=== PATIENT | male | born 1990 | race African-American/Black ===

== ENCOUNTER 2021-03-07 00:01 | Emergency (ER) | payer OTHER ==
--- NOTE | 2021-03-07 00:14 | EDM.PDOC ---
ED HPI GENERAL MEDICAL PROBLEM - General Chief Complaint: Fever Stated Complaint: HIGH FEVER Time Seen by Provider: 03/07/21 00:12 Source of Information: Reports: Patient History Limitations: Reports: No Limitations - History of Present Illness INITIAL COMMENTS - FREE TEXT/NARRATIVE: Patient is a 30-year-old male sent [place] [facility] for evaluation for fever. Patient was. A fever greater than 102 was given Tylenol before arrival. Patient states that he has had a dry cough diffuse body aches. Has been tolerating p.o. no nausea vomiting chest pain abdominal pain. He states no one else at the retirement was having similar symptoms. body aches Pain Score (Numeric/FACES): 8 - Related Data Allergies Allergy/AdvReac Type Severity Reaction Status Date / Time No Known Allergies Allergy Verified 03/07/21 00:12 Home Meds: Home Meds . [No Known Home Meds] 03/07/21 [History] ED ROS GENERAL - Review of Systems Review Of Systems: See Below Constitutional: Reports: Fever, Chills, Malaise HEENT: Reports: No Symptoms Respiratory: Reports: Cough Cardiovascular: Reports: No Symptoms Endocrine: Reports: No Symptoms GI/Abdominal: Reports: No Symptoms : Reports: No Symptoms Musculoskeletal: Reports: No Symptoms Skin: Reports: No Symptoms Neurological: Reports: No Symptoms Psychiatric: Reports: No Symptoms Hematologic/Lymphatic: Reports: No Symptoms Immunologic: Reports: No Symptoms ED EXAM, GENERAL - Physical Exam Exam: See Below Exam Limited By: No Limitations General Appearance: Alert, WD/WN, No Apparent Distress Eye Exam: Bilateral Eye: EOMI, PERRL Ears: Normal External Exam Throat/Mouth: Normal Inspection Head: Atraumatic, Normocephalic Neck: Normal Inspection Respiratory/Chest: No Respiratory Distress, Lungs Clear, Normal Breath Sounds Cardiovascular: Normal Peripheral Pulses, Regular Rate, Rhythm GI/Abdominal: Normal Bowel Sounds, Soft, Non-Tender Extremities: Normal Inspection, Normal Range of Motion Neurological: Alert, Oriented, CN II-XII Intact, Normal Cognition, Normal Gait Course - Vital Signs Last Recorded V/S: Last Vital Signs Temp 101.4 F H 03/07/21 00:13 Pulse 80 03/07/21 03:50 Resp 16 03/07/21 00:13 BP 112/70 03/07/21 03:50 Pulse Ox 97 03/07/21 03:50 - Orders/Labs/Meds Orders: Active Orders 24 hr Category Date Time Status CULTURE BLOOD [BC] Stat Lab 03/07/21 00:40 Received CULTURE BLOOD [BC] Stat Lab 03/07/21 00:45 Received Blood Culture x2 Reflex Set [OM.PC] Stat Oth 03/07/21 00:13 Ordered Labs: Laboratory Tests 03/07/21 03/07/21 03/07/21 Range/Units 00:30 00:40 00:40 WBC (4.0-11.0) K/uL RBC (4.50-5.90) M/uL Hgb (13.0-17.0) g/dL Hct (38.0-50.0) % MCV (80.0-98.0) fL MCH (27.0-32.0) pg MCHC (31.0-37.0) g/dL RDW Std Deviation (28.0-62.0) fl RDW Coeff of Florencio (11.0-15.0) % Plt Count (150-400) K/uL MPV (7.40-12.00) fL Neut % (Auto) (48.0-80.0) % Lymph % (Auto) (16.0-40.0) % [place] % (Auto) (0.0-15.0) % Eos % (Auto) (0.0-7.0) % Baso % (Auto) (0.0-1.5) % Neut # (Auto) (1.4-5.7) K/uL Lymph # (Auto) (0.6-2.4) K/uL [place] # (Auto) (0.0-0.8) K/uL Eos # (Auto) (0.0-0.7) K/uL Baso # (Auto) (0.0-0.1) K/uL Nucleated RBC % /100WBC Nucleated RBCs # K/uL Sodium 136 (136-148) mmol/L Potassium 4.1 (3.5-5.1) mmol/L Chloride 100 (98-107) mmol/L Carbon Dioxide 22.6 (21.0-32.0) mmol/L BUN 12 (7.0-18.0) mg/dL Creatinine 1.2 (0.8-1.3) mg/dL Est Cr Clr Drug Dosing 92.94 mL/min Estimated GFR (MDRD) > 60.0 ml/min Glucose 108 H (74-106) mg/dL Lactic Acid 0.8 (0.4-2.0) mmol/L Calcium 8.6 (8.5-10.1) mg/dL Phosphorus 3.9 (2.6-4.7) mg/dL Magnesium 1.9 (1.8-2.4) mg/dL Total Bilirubin 0.2 (0.2-1.0) mg/dL AST 22 (15-37) IU/L ALT 31 (14-63) IU/L Alkaline Phosphatase 65 (46-116) U/L Creatine Kinase 285 (26-308) U/L Total Protein 7.7 (6.4-8.2) g/dL Albumin 4.0 (3.4-5.0) g/dL Globulin 3.7 (2.6-4.0) g/dL Albumin/Globulin Ratio 1.1 (0.9-1.6) Urine Color YELLOW Urine Appearance CLEAR Urine pH 6.0 (5.0-8.0) Ur Specific [place] 1.020 (1.001-1.035) Urine Protein NEGATIVE (NEGATIVE) mg/dL Urine Glucose (UA) NEGATIVE (NEGATIVE) mg/dL Urine Ketones 15 H (NEGATIVE) mg/dL Urine Occult Blood NEGATIVE (NEGATIVE) Urine Nitrite NEGATIVE (NEGATIVE) Urine Bilirubin NEGATIVE (NEGATIVE) Urine Urobilinogen 0.2 (<2.0) EU/dL Ur Leukocyte Esterase NEGATIVE (NEGATIVE) SARS-CoV-2 RNA (JOEL) (NEGATIVE) 03/07/21 03/07/21 Range/Units 00:45 01:28 WBC 5.18 (4.0-11.0) K/uL RBC 5.17 (4.50-5.90) M/uL Hgb 14.7 (13.0-17.0) g/dL Hct 43.0 (38.0-50.0) % MCV 83.2 (80.0-98.0) fL MCH 28.4 (27.0-32.0) pg MCHC 34.2 (31.0-37.0) g/dL RDW Std Deviation 42.5 (28.0-62.0) fl RDW Coeff of Florencio 14 (11.0-15.0) % Plt Count 230 (150-400) K/uL MPV 10.80 (7.40-12.00) fL Neut % (Auto) 57.9 (48.0-80.0) % Lymph % (Auto) 17.4 (16.0-40.0) % [place] % (Auto) 23.9 H (0.0-15.0) % Eos % (Auto) 0.0 (0.0-7.0) % Baso % (Auto) 0.8 (0.0-1.5) % Neut # (Auto) 3.0 (1.4-5.7) K/uL Lymph # (Auto) 0.9 (0.6-2.4) K/uL [place] # (Auto) 1.2 H (0.0-0.8) K/uL Eos # (Auto) 0.0 (0.0-0.7) K/uL Baso # (Auto) 0.0 (0.0-0.1) K/uL Nucleated RBC % 0.0 /100WBC Nucleated RBCs # 0 K/uL Sodium (136-148) mmol/L Potassium (3.5-5.1) mmol/L Chloride (98-107) mmol/L Carbon Dioxide (21.0-32.0) mmol/L BUN (7.0-18.0) mg/dL Creatinine (0.8-1.3) mg/dL Est Cr Clr Drug Dosing mL/min Estimated GFR (MDRD) ml/min Glucose (74-106) mg/dL Lactic Acid (0.4-2.0) mmol/L Calcium (8.5-10.1) mg/dL Phosphorus (2.6-4.7) mg/dL Magnesium (1.8-2.4) mg/dL Total Bilirubin (0.2-1.0) mg/dL AST (15-37) IU/L ALT (14-63) IU/L Alkaline Phosphatase (46-116) U/L Creatine Kinase (26-308) U/L Total Protein (6.4-8.2) g/dL Albumin (3.4-5.0) g/dL Globulin (2.6-4.0) g/dL Albumin/Globulin Ratio (0.9-1.6) Urine Color Urine Appearance Urine pH (5.0-8.0) Ur Specific [place] (1.001-1.035) Urine Protein (NEGATIVE) mg/dL Urine Glucose (UA) (NEGATIVE) mg/dL Urine Ketones (NEGATIVE) mg/dL Urine Occult Blood (NEGATIVE) Urine Nitrite (NEGATIVE) Urine Bilirubin (NEGATIVE) Urine Urobilinogen (<2.0) EU/dL Ur Leukocyte Esterase (NEGATIVE) SARS-CoV-2 RNA (JOEL) POSITIVE H (NEGATIVE) Meds: Medications Discontinued Medications Generic Name Dose Route Start Last Admin Trade Name Freq PRN Reason Stop Dose Admin Ketorolac Tromethamine 30 mg 03/07/21 00:49 03/07/21 00:52 Ketorolac 30 Mg/Ml Sdv IM 03/07/21 00:50 30 mg NOW STA Administration - Re-Assessments/Exams Free Text/Narrative Re-Assessment/Exam: 03/07/21 20:57 Patient was discharged and chart was finished during downtime Departure - Departure Time of Disposition: 04:00 Disposition: Home, Self-Care 01 Condition: Good Clinical Impression: COVID-19 - Discharge Information Referrals: PCP,None [Primary Care Provider] - Forms: ED Department Discharge - My Orders Last 24 Hours: My Active Orders 03/07/21 00:13 Blood Culture x2 Reflex Set [OM.PC] Stat 03/07/21 00:40 CULTURE BLOOD [BC] Stat 03/07/21 00:45 CULTURE BLOOD [BC] Stat - Assessment/Plan Last 24 Hours: My Active Orders 03/07/21 00:13 Blood Culture x2 Reflex Set [OM.PC] Stat 03/07/21 00:40 CULTURE BLOOD [BC] Stat 03/07/21 00:45 CULTURE BLOOD [BC] Stat Plan: Patient is a 30-year-old male who presents today for fever. States has been having body aches feeling tired and fatigue. Still tolerating p.o. Patient a slight fever he will give Motrin will obtain labs blood culture UA chest rate an d reassess.
[2021-03-07] MEDS ORDERED: Ketorolac 30 MG/ML SDV IM STA (00:49)
--- NOTE | 2021-03-07 01:13 | CR ---
INDICATION: Fever TECHNIQUE: Chest radiograph 1 view COMPARISON: None FINDINGS: Mediastinum: Nodular prominence of the left hilum is present. The heart silhouette is normal in size and morphology. Lung: Both lungs are unremarkable in appearance. No sign of pleural effusion seen. No pneumothorax is identified. Bone and Soft tissue: Unremarkable for age. IMPRESSION: 1. Nodular prominence of the left hilum is present. Assessment with chest CT may be helpful to exclude adenopathy Dictated by Quincy Lowery MD @ 03/07/2021 1:10:57 AM Dictated by: Quincy Lowery MD @ 03/07/2021 01:11:06 (Electronically Signed)
[2021-03-07 01:44] LABS: BLOOD UREA NITROGEN,BUN 12 mg/dL (7.0-18.0); CARBON DIOXIDE,CO2 22.6 mmol/L (21.0-32.0); CHLORIDE,CL 100 mmol/L (98-107); GLUCOSE RANDOM 108 mg/dL (74-106); POTASSIUM,K 4.1 mmol/L (3.5-5.1); SODIUM,NA 136 mmol/L (136-148)
--- NOTE | 2021-03-07 02:56 | CT ---
INDICATION: Fever, possible adenopathy on chest x-ray. TECHNIQUE: Axial images were obtained from the thoracic inlet to the diaphragm. Reformats: Coronal and sagittal IV Contrast: None COMPARISON: Chest x-ray 03/07/2021 FINDINGS: Mediastinum: Thoracic aorta is normal in caliber. Thyroid gland unremarkable. Calcified left hilar lymph nodes. Lungs and Pleural Space: No pleural effusion or pneumothorax. Calcified granuloma left lower lobe. Chest wall: No masses. Upper abdomen: Normal. Bones: Unremarkable for age. IMPRESSION: 1. Mildly enlarged left hilar lymph nodes with calcification corresponding to the chest x-ray abnormality. These are secondary to remote granulomatous disease. Associated granuloma noted within the left lower lobe. 2. Otherwise unremarkable chest CT. Please note that all CT scans at this facility use dose modulation, iterative reconstruction, and/or weight-based dosing when appropriate to reduce radiation dose to as low as reasonably achievable. Dictated by Pepe Salmeron MD @ 03/07/2021 2:55:52 AM (Electronically Signed)
== END 2021-03-07 03:51 | disposition home or self-care (01) ==
LOC: MW.ED 00:01
DX: U07.1 COVID-19 (principal)
CPT/HCPCS: 36415; 71045; 71250; 80053; 81003; 82550; 83605; 83735; 84100; 85025; 87040; 87635; 96372; 99284; J1885; U0002